=== PATIENT | female | born 1965 | race Caucasian/White ===

== ENCOUNTER 2020-09-03 07:41 | Emergency (ER) | payer OTHER ==
[~2020-09-03] VITALS: Ht 154.9 cm; Wt 65.8 kg
[2020-09-03] MEDS ORDERED: DESYREL150 MG PO (07:50)
[2020-09-03] MEDS ORDERED: LEXAPRO20 MG PO (07:50)
[2020-09-03] MEDS ORDERED: AVAPRO75 MG PO (07:50)
[2020-09-03] MEDS ORDERED: MELATONIN5 MG SUBLING (07:50)
[2020-09-03] MEDS ORDERED: TIZANIDINE HCL 22 M1 PO (07:51)
[2020-09-03] MEDS ORDERED: FIORINAL 50-321 EACH PO (07:51)
[2020-09-03 08:24] VITALS: BP 144/81
== END 2020-09-03 08:25 | disposition home or self-care (01) ==
LOC: M.ERS 07:41
DX: S50.311A Abrasion of right elbow, initial encounter (principal); S60.412A Abrasion of right middle finger, initial encounter; S60.414A Abrasion of right ring finger, initial encounter; M25.521 Pain in right elbow; M79.641 Pain in right hand; R51.9 Headache, unspecified; I10 Essential (primary) hypertension; Z79.899 Other long term (current) drug therapy; Z88.6 Allergy status to analgesic agent; V49.49XA Driver injured in collision with other motor vehicles in traffic accident, initial encounter; Y93.89 Activity, other specified; Y92.89 Other specified places as the place of occurrence of the external cause; Y99.8 Other external cause status